=== PATIENT | female | born 1995 | race Caucasian/White ===

== ENCOUNTER → 2018-05-31 | Outpatient (CLI) | payer OTHER ==
--- NOTE | 2018-06-04 13:41 | USB ---
History: Family history of breast cancer in aunt at age 50. Taking hormonal contraceptives for 2 months. Physical Findings: Nurse did not find any significant physical abnormalities on exam. US Breast BILAT Bilateral complete breast ultrasound includes all four quadrants, the retroareolar region and axilla. Finding demonstrates no cystic or solid lesion seen. Extremely dense breast tissues are present. No axillary lymph adenopathy is seen. These results were verbally communicated with the patient and result sheet given to the patient on 05/31/18. ASSESSMENT: Negative, BI-RAD 1 RECOMMENDATION: Routine screening mammogram of both breasts at age 39. Unless indication to start sooner.
== END | disposition home or self-care (01) ==
LOC: RADUSWWP 14:40
PROVIDERS: ATTEND Family Medicine
DX: N63.0 Unspecified lump in unspecified breast (principal)

== ENCOUNTER → 2020-10-17 | Outpatient (CLI) | payer OTHER ==
--- NOTE | 2020-10-17 08:51 | USB ---
Reason for exam: clinical finding. History: Family history of breast cancer in aunt at age 50. Taking hormonal contraceptives for 2 months. Indicated problem(s): palpable abnormality and pain in the right breast. Physical Findings: Nurse Summary: palpable lump (nurse dw). US Breast Limited RT Right limited breast ultrasound including focal area of concern, retroareolar and axilla demonstrates a 6mm and 7mm lymph node at the axilla. Right upper outer quadrant dense breast tissue. No mass or cyst. These results were verbally communicated with the patient and result sheet given to the patient on 10/17/20. ASSESSMENT: Benign, BI-RAD 2 RECOMMENDATION: Routine screening mammogram of both breasts at age 39. Manage on a clinical basis with regard to tenderness.
== END | disposition home or self-care (01) ==
LOC: RADUSWWP 07:56
PROVIDERS: ATTEND Obstetrics & Gynecology Obstetrics
DX: R92.2 Inconclusive mammogram (principal); Z80.3 Family history of malignant neoplasm of breast

== ENCOUNTER 2021-01-04 14:43 | Emergency (ER) | payer OTHER ==
[2021-01-04 14:50] VITALS: TEMP 98.6
--- NOTE | 2021-01-04 16:11 | ED ---
General Adult HPI - General Chief complaint: ENT Stated complaint: hearing loss Time Seen by Provider: 01/04/21 15:26 Source: patient, RN notes reviewed, old records reviewed Mode of arrival: ambulatory Limitations: no limitations - History of Present Illness Initial comments: Patient is a 25 [address] female with past medical history remarkable for depression presents emergency Department complaining of a three-day history of tinnitus. She states that this started 3 days ago, and she became concerned because she was recently started on Wellbutrin by her PCP for her depression. She did some reading online, which stated that this is a side effect of Wellbutrin. She merely stopped taking it 3 days ago when the tinnitus began. She states it has been persistent since then but has not worsened. She describes it as an uncomfortable feeling in both ears, the left or being a little more sensitive to sounds. She still has intact hearing in bilateral ears. Denies any fevers, chills, upper respiratory symptoms including sore throat, rhinorrhea, sinus tenderness. She denies any ear discharge. She has not recently gone for swims. She denies any pain in her bilateral ears. She is no other acute complaints at this time. She states she has been more anxious because she is concerned that the Wellbutrin caused ototoxicity. She presents today after speaking with her ENT is seeking a steroid taper as she cannot follow-up with ENT for multiple weeks. She is no other acute complaints at this time. - Related Data Previous Rx's Medication Instructions Recorded predniSONE 10 mg PO DAILY #45 tab 01/04/21 Allergies Allergy/AdvReac Type Severity Reaction Status Date / Time No Known Allergies Allergy Verified 01/04/21 14:50 Review of Systems ROS Statement: Those systems with pertinent positive or pertinent negative responses have been documented in the HPI. Review of Systems: CONST: Denies fever EYES: Denies blurry vision ENT: Endorses mild hearing loss, sensitivity and sounds C/V: Denies Chest pain RESP: Denies shortness of breath GI: Denies abdominal pain : Denies dysuria SKIN: Denies rash. MSK: Denies joint pain. NEURO: Denies headache ROS Other: All systems not noted in ROS Statement are negative. Past Medical History Past Medical History: No Reported History History of Any Multi-Drug Resistant Organisms: None Reported Past Surgical History: No Surgical Hx Reported Past Psychological History: Anxiety, Depression Smoking Status: Never smoker Past Alcohol Use History: Occasional Past Drug Use History: Marijuana General Exam - General Exam Comments Initial Comments: General: Appears in no acute distress. HEAD: Normal with no signs of head trauma. EYES: PERRLA, EOMI, conjunctiva normal, no discharge. Pupils are 3 mm and equally bilaterally. ENT: Normal oropharynx. No rhinorrhea. No sinus tenderness to palpation. She has no mastoid process tenderness to palpation. Bilateral ear canals are unremarkable with no signs of acute infection or erythema. Bilateral tympanic membranes are within normal limits, having no signs of fluid accumulation, bulging, erythema. I do not have tuning forks, however patient does have intact hearing grossly. It appears to be equal bilaterally. I tempted to isolated both years for an individual hearing test, which seems to be within normal limits. RESPIRATORY: Clear breath sounds bilaterally. No wheezes, rales, or rhonchi. C/V: Patient is initially tachycardic in triage but in a normal sinus rhythm in the room. She treats history anxiety. Peripheral pulses are 2+ and intact throughout. ABD: Abdomen is nondistended. EXT: No obvious deformity. SKIN: No rashes or lesions observed on exposed skin. NEURO: Alert and oriented 4. No focal sensory strength deficits. Cerebellar function is intact as evident by absence of dysdiadochokinesia as well as intact finger-nose testing. Patient is able to ambulate without difficult to. Cranial nerves II through XII appear to be within normal limits and intact. Neurological exam is relatively unremarkable and within normal limits. Limitations: no limitations Course Vital Signs 01/04/21 01/04/21 14:45 16:40 Temperature 98.6 F Pulse Rate 119 H 86 Respiratory 22 17 Rate Blood Pressure 136/95 120/69 O2 Sat by Pulse 97 98 Oximetry Medical Decision Making - Medical Decision Making Based on the patient's presentation and physical exam, she appears to be having tinnitus with no other acute symptoms at this time. Hearing does appear to be grossly intact, however I cannot perform a more in depth urine exam is I do not have access to tuning forks. I did speak with the on-call ENT, Dr. easley, over the phone who explain that due to the patient's age, as well as recent onset of Wellbutrin and resistant onset of symptoms, and is reasonable to start her on a prednisone taper and to give her follow-up instructions with ENT, as she may have sensorineural hearing loss. She can follow-up either with him or with another ENT. I spoke to patient regarding this plan she was in agreement. I will provide her with a prednisone prescription with a taper over the course of 2 weeks. I explained to her how to take the medications and she exposed understanding. I do believe it is safe for her to be discharged at this time. I advised her to continue to stop taking the Wellbutrin at this time, which she was in agreement this plan. I will provide the patient with a prescription for prednisone taper. I instructed the patient to follow up with their PCP in the next 3 days. I provided contact information for follow up with [facility]. I explained that the patient should return to the emergency department if they experience any worsening symptoms. Strict return precautions were discussed with the patient. The patient expressed understanding of these instructions. I answered all questions that the patient had. The patient was discharged home in fair condition with their prescriptions and follow up information. Disposition Clinical Impression: Tinnitus Disposition: HOME SELF-CARE Condition: Fair Instructions (If sedation given, give patient instructions): Tinnitus (ED) Prescriptions: predniSONE 10 mg PO DAILY #45 tab Is patient prescribed a controlled substance at d/c from ED?: No Referrals: Jefry Garcia MD [Primary Care Provider] - 1-2 days Abdullahi Easley DO [Doctor of Osteopathic Medicine] - 1-2 days
[2021-01-04 16:42] VITALS: BP 120/69; PULSE 86; RESP 17
== END 2021-01-04 16:42 | disposition home or self-care (01) ==
LOC: EC 14:43
DX: H93.13 Tinnitus, bilateral (principal); F41.9 Anxiety disorder, unspecified; F32.9 Major depressive disorder, single episode, unspecified; F12.90 Cannabis use, unspecified, uncomplicated
CPT/HCPCS: 99284

== ENCOUNTER 2024-11-22 19:43 | Emergency (ER) | payer OTHER ==
--- NOTE | 2024-11-22 20:46 | ED ---
Chest Pain HPI - General Chief Complaint: Chest Pain Stated Complaint: Throat pain/object in throat Time Seen by Provider: 11/22/24 20:45 Source: patient, RN notes reviewed Mode of arrival: ambulatory Limitations: no limitations - History of Present Illness Initial Comments: 29-year-old female presenting for possible aspiration 1 hour ago. States she w as eating corn on the cob very fast and believes she may have inhaled a piece of corn. States she has having discomfort on the right side of her chest after the incident. Denies difficulty breathing or swallowing. Denies fever, cough. - Related Data Previous Rx's Medication Instructions Recorded predniSONE 10 mg PO DAILY #45 tab 01/04/21 Amoxic-Pot Clav 875-125Mg 1 tab PO Q12HR 7 Days #14 tab 11/22/24 [Augmentin 875-125] Allergies Allergy/AdvReac Type Severity Reaction Status Date / Time No Known Allergies Allergy Verified 11/22/24 20:04 Review of Systems ROS Statement: Those systems with pertinent positive or pertinent negative responses have been documented in the HPI. ROS Other: All systems not noted in ROS Statement are negative. Past Medical History Past Medical History: No Reported History History of Any Multi-Drug Resistant Organisms: None Reported Past Surgical History: No Surgical Hx Reported Past Psychological History: Anxiety, Depression Smoking Status: Current some day smoker Past Alcohol Use History: Rare Past Drug Use History: Marijuana General Exam Limitations: no limitations General appearance: alert, in no apparent distress Head exam: Present: atraumatic, normocephalic, normal inspection ENT exam: Present: normal exam, mucous membranes moist Neck exam: Present: normal inspection. Absent: tenderness, meningismus, lymphadenopathy Respiratory exam: Present: normal lung sounds bilaterally. Absent: respiratory distress, wheezes, rales, rhonchi, stridor Cardiovascular Exam: Present: regular rate, normal rhythm, normal heart sounds. Absent: systolic murmur, diastolic murmur, rubs, gallop, clicks Neurological exam: Present: alert, oriented X3 Psychiatric exam: Present: normal affect, normal mood Skin exam: Present: warm, dry, intact, normal color. Absent: rash Course Vital Signs 11/22/24 20:01 Temperature 98.5 F Pulse Rate 72 Respiratory 22 Rate Blood Pressure 124/69 O2 Sat by Pulse 98 Oximetry Chest Pain MDM - MDM Was pt. sent in by a medical professional or institution (GAURAV Bey, HOUSEKEEPING AIDE, urgent care, hospital, or care home...) When possible be specific @ -No Did you speak to anyone other than the patient for history (EMS, parent, family, police, friend...)? What history was obtained from this source @ -No Did you review nursing and triage notes (agree or disagree)? Why? @ -I reviewed and agree with nursing and triage notes Were old charts reviewed (outside hosp., previous admission, EMS record, old EKG, old radiological studies, urgent care reports/EKG's, care home records)? Report findings @ -No old charts were reviewed Differential Diagnosis (chest pain, altered mental status, abdominal pain women, abdominal pain men, vaginal bleeding, weakness, fever, dyspnea, syncope, headache, dizziness, GI bleed, back pain, seizure, CVA, palpatations, mental health, musculoskeletal)? @ -Differential Chest Pain: Aspiration pneumonia, foreign body, stable Angina, Unstable Angina, STEMI, NSTEMI Aortic Dissection, Pneumothorax, Musculoskeletal, Esophageal Spasm GERD, Cholecystitis, Pancreatitis, Zoster, this is not meant to be an all-inclusive list. EKG interpreted by me (3pts min.). @ -None X-rays interpreted by me (1pt min.). @ -Chest x-ray reveals right medial lower lung zone/hilum airspace disease noted CT interpreted by me (1pt min.). @ -CT chest negative for focal consolidation or acute disease U/S interpreted by me (1pt. min.). @ -None done What testing was considered but not performed or refused? (CT, X-rays, U/S, labs)? Why? @ -None What meds were considered but not given or refused? Why? @ -None Did you discuss the management of the patient with other professionals (professionals i.e. GAURAV Bey, HOUSEKEEPING AIDE, lab, RT, psych nurse, social security assessor, solutions market consultant, teacher, water resources technical officer, case management social worker)? Give summary @ -No Was smoking cessation discussed for >3mins.? @ -No Was critical care preformed (if so, how long)? @ -No Were there social determinants of health that impacted care today? How? (Homelessness, low income, unemployed, alcoholism, drug addiction, transportation, low edu. Level, literacy, decrease access to med. care, fdc, rehab)? @ -No Was there de-escalation of care discussed even if they declined (Discuss DNR or withdrawal of care, Hospice)? DNR status @ -No What co-morbidities impacted this encounter? (DM, HTN, Smoking, COPD, CAD, Cancer, CVA, ARF, Chemo, Hep., AIDS, mental health diagnosis, sleep apnea, morbid obesity)? @ -None Was patient admitted / discharged? Hospital course, mention meds given and route, prescriptions, significant lab abnormalities, going to OR and other pertinent info. @ -Discharge. 29-year-old female presenting for right sided chest pain status post possible aspiration on a piece of board. Patient is well-appearing, no acute distress. Heart and lungs are clear to auscultation bilaterally. No difficulty breathing or swallowing. Chest x-ray reveals right medial lower lung zone/hilum airspace disease. Given concern for aspiration, CT chest then ordered which was negative for focal consolidation or acute disease. Results discussed with patient. Patient was started on antibiotics for coverage for aspiration pneumonia and discussed strict return precautions and close follow-up care. Case was discussed with my ED attending Dr. Goodman. Undiagnosed new problem with uncertain prognosis? @ -No Drug Therapy requiring intensive monitoring for toxicity (Heparin, Nitro, Insulin, Cardizem)? @ -No Were any procedures done? @ -No Diagnosis/symptom? @ -Pneumonia Acute, or Chronic, or Acute on Chronic? @ -Acute Uncomplicated (without systemic symptoms) or Complicated (systemic symptoms)? @ -Uncomplicated Side effects of treatment? @ -No Exacerbation, Progression, or Severe Exacerbation? @ -No Poses a threat to life or bodily function? How? (Chest pain, [place], [place], pneumonia, PE, COPD, DKA, ARF, appy, cholecystitis, CVA, Diverticulitis, Homicidal, Suicidal, threat to staff... and all critical care pts) @ -Not at this time Disposition Clinical Impression: Pneumonia Disposition: HOME SELF-CARE Condition: Stable Additional Instructions: Take Augmentin twice daily for 7 days as directed. Please return to the E mergency Department if symptoms worsen or any other concerns. Prescriptions: Amoxic-Pot Clav 875-125Mg [Augmentin 875-125] 1 tab PO Q12HR 7 Days #14 tab Is patient prescribed a controlled substance at d/c from ED?: No Referrals: Jefry Garcia MD [Primary Care Provider] - 1-2 days Time of Disposition: 23:22
--- NOTE | 2024-11-22 21:11 | XR ---
EXAMINATION TYPE: XR chest 2V DATE OF EXAM: 11/22/2024 9:02 PM CLINICAL INDICATION:Female, 29 years old with history of chest pain; [facility] COMPARISON: None TECHNIQUE: XR chest 2V Frontal view of the chest. FINDINGS: Lungs/Pleura: Hazy radiodensity is seen in the right medial lower lung zone/right hilum. There is no evidence of pneumothorax. Pulmonary vascularity: Unremarkable. Heart/mediastinum: Cardiomediastinal silhouette is unremarkable. Musculoskeletal: No acute osseous pathology. IMPRESSION: Right medial lower lung zone/hilum airspace disease noted. May relate to pneumonia versus other acute infectious/inflammatory process. [facility], , 11/22/2024 9:09 PM
--- NOTE | 2024-11-22 23:04 | CT ---
EXAM: CT Chest Without Intravenous Contrast CLINICAL HISTORY: Possible aspiration TECHNIQUE: Axial computed tomography images of the chest without intravenous contrast. CTDI is 3.9 mGy and DLP is 169.3 mGy-cm. This CT exam was performed using one or more of the following dose reduction techniques: automated exposure control, adjustment of the mA and/or kV according to patient size, and/or use of iterative reconstruction technique. COMPARISON: Plain radiographs performed earlier FINDINGS: Lungs: Unremarkable. No mass. No consolidation. Pleural space: Unremarkable. No significant effusion. No pneumothorax. Heart: Unremarkable. No cardiomegaly. No significant pericardial effusion. No significant coronary artery calcifications. Bones/joints: No focal airspace consolidation with the previous right perihilar changes on the plain radiographic evaluation consistent with known features of pectus configuration. There is a pectus excavatum configuration of the sternum and anterior chest. No acute osseous abnormality. Soft tissues: Unremarkable. Vasculature: Unremarkable. No thoracic aortic aneurysm. Lymph nodes: Unremarkable. No enlarged lymph nodes. IMPRESSION: The lungs are clear. No focal airspace consolidation.
[2024-11-23 00:30] VITALS: BP 125/74; PULSE 91; RESP 18; TEMP 98.3
== END 2024-11-23 00:30 | disposition home or self-care (01) ==
LOC: EC 19:43
DX: J18.9 Pneumonia, unspecified organism (principal); F17.200 Nicotine dependence, unspecified, uncomplicated
CPT/HCPCS: 71046; 71250; 99285